=== PATIENT | female | born 1935 | race Caucasian/White ===

== ENCOUNTER 2020-04-03 17:28 | Outpatient (CLI) | payer MEDICARE, SELFPAY ==
[2020-04-03 17:50] LABS: Add Urine Microscopic? YES; Appearance Urine Clear (Clear); Bacteria Urine Trace /hpf; Bilirubin Urine Negative (Negative); Blood Urine Negative (Negative); Color Urine Yellow (Yellow); Glucose Urine UA Negative (Negative); Ketones Urine Negative (Negative); Leukocyte Esterase Ur 1+ LEU/UL (Negative); Mucus Urine Rare /lpf; Nitrate Urine Negative (Negative); Protein Urine 1+ mg/dL (Negative); RBC Urine 0-2 /hpf (0-2); Squamous Epithelial Cell Urine Rare /hpf (Few); Urobilinogen Urine Negative mg/dL (<2.0); WBC Urine 16-20 /hpf
== END 2020-04-03 17:29 | disposition home or self-care (01) ==
PROVIDERS: PCP Family Medicine; Visit Provider Family Medicine
DX: N39.0 Urinary tract infection, site not specified (principal)
CPT/HCPCS: 81001; 87086; 87088

== ENCOUNTER 2020-06-04 11:39 | Outpatient (NON) | payer MEDICARE, SELFPAY ==
[2020-06-04 14:23] LABS: Influenza Control Positive
[2020-06-04 21:48] LABS: SARS-CoV-2 RNA PCR Negative
== END 2020-06-04 11:40 ==
LOC: ANHCOVIDDT 11:41
PROVIDERS: PCP Family Medicine; Visit Provider Family Medicine
DX: R05 Cough (principal); Z20.828 Contact with and (suspected) exposure to other viral communicable diseases
CPT/HCPCS: 87635; 87804; C9803; U0003

== ENCOUNTER 2020-08-27 14:40 | Outpatient (CLI) | payer MEDICARE, SELFPAY ==
--- NOTE | ~2020-08-27 | XR_ITS ---
XR chest 2V DATE: 08/27/2020 15:54 INDICATION: Dizziness and giddiness. History of COPD. TECHNIQUE: PA and lateral views COMPARISON: 06/14/2017 CT chest FINDINGS: Normal heart size. Aortic arch calcification. No hilar or mediastinal enlargement. No pulmonary infiltrate or consolidation, pleural effusion or pulmonary vascular congestion or pneumo thorax is detected. Diffuse osteopenia. Status post cholecystectomy IMPRESSION: No active cardiopulmonary disease Aortic atherosclerosis Status post cholecystectomy Reviewed, dictated and finalized at location B.
[2020-08-27 15:21] LABS: Basophils Absolute Auto 0.1 K/mm3 (0.0-0.1); Basophils Percent Auto 0.5 % (0.2-1.2); Eosinophils Absolute Auto 0.3 K/mm3 (0-0.3); Eosinophils Percent Auto 2.9 % (0-4.4); Hematocrit 44.7 % (37.0-47.0); Hemoglobin 14.6 g/dL (12.0-15.0); Immature Granulocyte Absolute 0.03 K/mm3 (0.00-0.031); Immature Granulocyte Percent A 0.3 % (0-0.5); Lymphocytes Absolute Auto 3.55 K/mm3 (0.9-3.2); Lymphocytes Percent Auto 30.1 % (18.3-44.2); Mean Corpuscular HGB Conc 32.7 g/dl (32-36); Mean Corpuscular Hemoglobin 30.7 pg (26-34); Mean Corpuscular Volume 94.1 fl (80-100); Mean Platelet Volume 9.5 fl (7.4-10.4); Monocytes Absolute Auto 1.1 K/mm3 (0.1-0.6); Monocytes Percent Auto 8.9 % (2.6-8.5); Neutrophils Absolute Auto 6.8 K/mm3 (1.3-6.7); Neutrophils Percent Auto 57.3 % (45.5-73.1); Platelet Count Result 286 k/mm3 (150-375); Red Blood Count 4.75 M/mm3 (4.2-5.4); Red Cell Distribution Width 11.3 % (11.5-14.5); White Blood Count 11.8 K/mm3 (4.5-10.0)
[2020-08-27 15:30] LABS: Add Urine Microscopic? YES; Appearance Urine Cloudy (Clear); Bacteria Urine Trace /hpf; Bilirubin Urine Negative (Negative); Blood Urine Negative (Negative); Color Urine Yellow (Yellow); Glucose Urine UA Negative (Negative); Ketones Urine Negative (Negative); Leukocyte Esterase Ur 3+ LEU/UL (NEGATIVE); Mucus Urine Rare /lpf; Nitrate Urine Negative (Negative); Protein Urine 1+ mg/dL (Negative); Specific Grav Ur 1.019 (1.001-1.035); Squamous Epithelial Cell Urine Rare /hpf (Few); Urobilinogen Urine Negative mg/dL (<2.0); WBC Urine 21-30 /hpf (0-3)
[2020-08-27 15:35] LABS: Alanine Aminotransferase 16 U/L (4-35); Albumin Level 4.3 g/dL (3.5-5.1); Alkaline Phosphatase 84 U/L (38-126); Anion Gap 6 mmol/L (8-16); Aspartate Amino Transferase 28 U/L (14-36); Bilirubin,Total 0.3 mg/dL (0.2-1.3); Blood Urea Nitrogen 20 mg/dL (7-17); Calcium 9.2 mg/dL (8.4-10.2); Carbon Dioxide 28 mmol/L (22-30); Chloride 104 mmol/L (98-107); Estimated Glomerular Filt Rate 47; Glucose 112 mg/dL (65-105); Potassium 4.8 mmol/L (3.4-5.0); Sodium 138 mmol/L (137-145)
[2020-08-29 15:52] LABS: Lamotrigine Lamictal 0.9 mcg/mL (4.0-18.0)
== END 2020-08-27 14:41 | disposition home or self-care (01) ==
LOC: ANHLAB 14:55
PROVIDERS: PCP Family Medicine; Visit Provider Nurse Practitioner Family
DX: R42 Dizziness and giddiness (principal); J44.9 Chronic obstructive pulmonary disease, unspecified; R05 Cough; G40.909 Epilepsy, unspecified, not intractable, without status epilepticus; R41.0 Disorientation, unspecified; N39.0 Urinary tract infection, site not specified; Z90.49 Acquired absence of other specified parts of digestive tract; M85.88 Other specified disorders of bone density and structure, other site; I70.0 Atherosclerosis of aorta; Z00.00 Encounter for general adult medical examination without abnormal findings
CPT/HCPCS: 36415; 71046; 80053; 80175; 81001; 84443; 85025; 87086

== ENCOUNTER 2020-11-24 12:13 | Outpatient (CLI) | payer MEDICARE, SELFPAY ==
[2020-11-24 12:54] LABS: Basophils Percent Auto 0.5 % (0.2-1.2); Eosinophils Absolute Auto 0.4 K/mm3 (0-0.3); Eosinophils Percent Auto 4.4 % (0-4.4); Hematocrit 42.3 % (37.0-47.0); Hemoglobin 13.5 g/dL (12.0-15.0); Immature Granulocyte Absolute 0.03 K/mm3 (0.00-0.031); Immature Granulocyte Percent A 0.3 % (0-0.5); Lymphocytes Absolute Auto 3.19 K/mm3 (0.9-3.2); Mean Corpuscular HGB Conc 31.9 g/dl (32-36); Mean Corpuscular Hemoglobin 30.8 pg (26-34); Mean Corpuscular Volume 96.6 fl (80-100); Mean Platelet Volume 9.4 fl (7.4-10.4); Monocytes Absolute Auto 0.9 K/mm3 (0.1-0.6); Monocytes Percent Auto 10.1 % (2.6-8.5); Neutrophils Absolute Auto 4.3 K/mm3 (1.3-6.7); Neutrophils Percent Auto 48.7 % (45.5-73.1); Platelet Count Result 247 k/mm3 (150-375); Red Blood Count 4.38 M/mm3 (4.2-5.4); Red Cell Distribution Width 11.6 % (11.5-14.5); White Blood Count 8.9 K/mm3 (4.5-10.0)
[2020-11-24 13:02] LABS: Add Urine Microscopic? YES; Appearance Urine Clear (Clear); Bilirubin Urine Negative (Negative); Blood Urine Negative (Negative); Color Urine Yellow (Yellow); Glucose Urine UA Negative (Negative); Ketones Urine Negative (Negative); Leukocyte Esterase Ur 3+ LEU/UL (NEGATIVE); Mucus Urine Rare /lpf; Nitrate Urine Negative (Negative); Protein Urine 1+ mg/dL (Negative); Specific Grav Ur 1.024 (1.001-1.035); Squamous Epithelial Cell Urine Rare /hpf (Few); Urobilinogen Urine Negative mg/dL (<2.0); WBC Urine 21-30 /hpf (0-3)
[2020-11-24 13:04] LABS: Alanine Aminotransferase 11 U/L (4-35); Albumin Level 4.3 g/dL (3.5-5.1); Alkaline Phosphatase 72 U/L (38-126); Anion Gap 7 mmol/L (8-16); Aspartate Amino Transferase 28 U/L (14-36); Bilirubin,Total 0.3 mg/dL (0.2-1.3); Blood Urea Nitrogen 21 mg/dL (7-17); Calcium 9.1 mg/dL (8.4-10.2); Carbon Dioxide 29 mmol/L (22-30); Chloride 105 mmol/L (98-107); Estimated Glomerular Filt Rate 47; Glucose 88 mg/dL (65-105); Potassium 4.5 mmol/L (3.4-5.0); Sodium 141 mmol/L (137-145)
== END 2020-11-24 12:14 | disposition home or self-care (01) ==
PROVIDERS: PCP Family Medicine; Visit Provider Nurse Practitioner Family
DX: N39.0 Urinary tract infection, site not specified (principal); R42 Dizziness and giddiness; R53.1 Weakness; R41.0 Disorientation, unspecified
CPT/HCPCS: 36415; 80053; 81001; 85025; 87086

== ENCOUNTER 2020-11-29 09:31 | Observation (INO) | payer MEDICARE, SELFPAY ==
[2020-11-29] VITALS (17 sets, daily range): BP systolic 130–151; BP diastolic 63–96; PULSE 77–87; RESP 12–22; TEMP 36.4–36.9; O2SAT 85–97; BMI 26.8
--- NOTE | ~2020-11-29 | MR_ITS ---
EXAMINATION: MR brain/brain stem wo/w con DATE: 11/30/2020 10:07 INDICATION: Headache and dizziness. TECHNIQUE: Magnetic resonance imaging (MRI) of the brain and brainstem was performed without and with 15 mm MultiHance intravenous contrast. Sequences included sagittal and axial T1-weighted FSE, axial diffusion-weighted FS EPI, axial T2*-weighted GRE, axial T2-weighted FLAIR Propeller, and axial T2-we ighted Propeller. Postcontrast sequences included axial and coronal T1-weighted FSE. Apparent diffusi on coefficient (ADC) maps were created. COMPARISON: Brain MRI 10/30/2016, head CT 11/29/2020 FINDINGS: There are scattered areas of nonspecific increased T2-weighted signal intensity in the cere bral white matter, which is within normal limits for the patient's age. There is no intracranial hemo rrhage, acute infarction, or abnormal intracranial mass lesion. The ventricles are normal in size. Th e paranasal sinuses are clear. There are likely changes of ocular lens replacement surgeries. The mas toid air cells are normal. IMPRESSION: 1. Normal aging brain. Reviewed, dictated and finalized at location A. IMPRESSION: 1. Normal aging brain.
--- NOTE | ~2020-11-29 | MR_ITS ---
EXAMINATION: MR cervical spine wo con DATE: 11/30/2020 10:06 INDICATION: Neck pain. TECHNIQUE: Magnetic resonance imaging (MRI) of the cervical spine was performed without intravenous c ontrast. Sequences included sagittal T2-weighted FSE, sagittal STIR FSE, sagittal T1-weighted FSE, ax ial MERGE, and axial T2-weighted FSE. COMPARISON: CT cervical spine 06/15/2018 FINDINGS: There is 6 degrees levocurvature of cervical spine. There is kyphosis of cervical spine. Th ere is 2 mm anterolisthesis of C3 on C4 and 2 mm retrolisthesis of C5 on C6 and C6 on C7. Vertebral b yamil heights are normal. There is severely decreased disc height at C5-C6 and C6-C7. The spinal cord s ignal intensity is normal. The following disc levels are specifically discussed: C2-C3: There is a central protrusion. There is mild left uncovertebral joint osteoarthritis. There is mild right and severe left facet joint osteoarthritis. There is mild left neural foraminal stenosis. There is mild central canal stenosis. C3-C4: The disc is bulging. There is mild bilateral uncovertebral joint osteoarthritis. There is jeff re bilateral facet joint osteoarthritis. There is mild bilateral neural foraminal stenosis. There is mild central canal stenosis with ventral indentation of the spinal cord. C4-C5: The disc is bulging. There is mild bilateral uncovertebral joint osteoarthritis. There is mild right and severe left facet joint osteoarthritis. There is mild left neural foraminal stenosis. Ther e is mild central canal stenosis with ventral indentation of spinal cord. C5-C6: The disc is bulging. There is severe bilateral uncovertebral joint osteoarthritis. There is mi ld bilateral facet joint osteoarthritis. There is mild bilateral neural foraminal stenosis. There is mild central canal stenosis with ventral indentation of the spinal cord. C6-C7: The disc is bulging. There is severe bilateral uncovertebral joint osteoarthritis. There is mi ld right and moderate left facet joint osteoarthritis. There is mild bilateral neural foraminal steno sis. There is mild central canal stenosis. C7-T1: The disc does not extend beyond the endplate margin. There is no uncovertebral joint osteoarth ritis. There is severe bilateral facet joint osteoarthritis. There is mild bilateral neural foraminal stenosis. There is no central canal stenosis. IMPRESSION: 1. Severe cervical spondylosis, stable from 06/15/2018. Reviewed, dictated and finalized at location A.
--- NOTE | ~2020-11-29 | CT_ITS ---
EXAMINATION: CT abdomen pelvis wo con DATE: 11/30/2020 14:35 INDICATION: Weakness and decreased appetite TECHNIQUE: Computed tomography (CT) of the abdomen and pelvis was performed without intravenous contr ast. The dose-length product (DLP) was 667.34 mGy-cm. Automated exposure control and iterative recons truction technique were employed. COMPARISON: 02/27/2009 FINDINGS: Minimal dependent atelectasis is present in the lung bases. The heart size is normal. Calci fied atherosclerosis is noted. The gallbladder is surgically absent. The liver, spleen, pancreas, and adrenal glands are normal. The kidneys are unremarkable. Contrast from recent CT scan partially opac ifies the urinary tract. There is calcified atherosclerosis of the aorta and many of the other arteri es. No pathologically enlarged abdominal or pelvic lymph nodes are identified. There is no free intra peritoneal gas or evidence of bowel obstruction. Calcified uterine fibroids are noted. Colonic divert iculosis is present without evidence of diverticulitis. There is moderate lumbar spondylosis. IMPRESSION: 1. No CT correlate for the patient's symptoms. Reviewed, dictated and finalized at location B.
--- NOTE | ~2020-11-29 | US_ITS ---
EXAMINATION: US venous doppler [facility] DATE: 11/30/2020 10:35 INDICATION: Lower limb pain and swelling TECHNIQUE: Grayscale ultrasound images without and with compression and Doppler ultrasound images of the bilateral lower extremity veins were obtained. COMPARISON: None. FINDINGS: The visualized portions of right common femoral vein, profunda (deep) femoral vein, femoral vein, pop liteal vein, posterior tibial veins, peroneal veins, gastrocnemius vein and greater saphenous vein ou tflow are patent. The visualized portions of left common femoral vein, profunda femoral vein, femoral vein, popliteal v ein, posterior tibial veins, peroneal veins, gastrocnemius vein and greater saphenous vein outflow ar e patent. IMPRESSION: 1. No deep venous thrombosis in either lower limb. Reviewed, dictated and finalized at location A.
--- NOTE | ~2020-11-29 | XR_ITS ---
XR chest 2V 11/29/2020 10:01 Indication: Weakness and dizziness Procedure: 2 view chest Comparison: 08/27/2020 Findings: Elevated right diaphragm. Bibasilar airspace disease. No significant pleural effusion or pn eumothorax. No edema. There is atherosclerosis. Impression: 1: Bibasilar airspace disease which may represent atelectasis or pneumonia. Reviewed, dictated and finalized at location A. Impression: 1: Bibasilar airspace disease which may represent atelectasis or pneumonia.
--- NOTE | ~2020-11-29 | CT_ITS ---
EXAMINATION: CTA chest PE protocol DATE: 11/29/2020 12:29 CDT INDICATION: Decreasing mental status. Increasing hypoxia. TECHNIQUE: Computed tomographic angiography (CTA) of the chest was performed with 100 mL Omnipaque-35 0 intravenous contrast. The dose-length product was 560.02 mGy-cm. Maximum intensity projection 3D-re constructions of the aorta and other arteries were constructed by the technologist on a separate work station. Automated exposure control and iterative reconstruction technique were employed. COMPARISON: 06/14/2017 FINDINGS: Enlarged pulmonary arteries, consistent with pulmonary hypertension. Study is technically a dequate without evidence for pulmonary embolism. There is thoracic lymphadenopathy. No significant pl eural or pericardial effusion. Small hiatal hernia. Cardiomegaly. There is dependent atelectasis. The re is mild consolidation in the lower lobes which is most likely atelectasis, although superimposed p neumonia not excluded. No endobronchial lesions. No pneumothorax.. IMPRESSION: 1. No evidence for pulmonary embolism. 2: Pulmonary hypertension. 3: Dependent atelectasis. Cannot exclude superimposed pneumonia. Reviewed, dictated and finalized at location A.
--- NOTE | ~2020-11-29 | CT_ITS ---
EXAMINATION: CT brain wo con DATE: 11/29/2020 12:20 INDICATION: Decreasing mental status TECHNIQUE: Computed tomography (CT) of the head was performed without intravenous contrast. The dose- length product was 681.00 mGy-cm. Automated exposure control and iterative reconstruction technique w ere employed. COMPARISON: CT dated 06/15/2018 FINDINGS: Brain parenchymal volume is normal for age. There are scattered mild periventricular and grider bcortical white matter changes, most likely related to small vessel ischemic disease (microangiopathy ). No acute intracranial infarction, hemorrhage, mass or mass effect. No ventriculomegaly or midline shift. Basilar cisterns are patent. Paranasal sinuses and mastoids are pneumatized. Orbits are symmet hilton. IMPRESSION: 1. No acute intracranial abnormality. Reviewed, dictated and finalized at location A.
--- NOTE | ~2020-11-29 | US_ITS ---
EXAMINATION: US carotid duplex BI DATE: 11/30/2020 10:34 INDICATION: Dizziness. TECHNIQUE: Grayscale, color Doppler, and pulsed Doppler images of the cervical carotid arteries were obtained. The degree of vessel stenosis is placed in one of the following categories: normal, <50%, 5 0-69%, >=70% but less than near-occlusion, near-occlusion, or total occlusion. Note that percent sten osis relative to normal distal artery lumen diameter is indirectly measured from velocity measurement s as described by Trey, et al. Radiology 2003; 229:[id number]. COMPARISON: None. FINDINGS: RIGHT: The right common carotid artery (CCA) peak systolic velocity (PSV) is 74 cm/s. The right internal car otid artery (ICA) PSV is 36 cm/s. The right ICA end-diastolic velocity (EDV) is 9 cm/s. The right ICA /CCA PSV ratio is 0.5. Grayscale and color Doppler images yield an estimate of <50% diameter reductio n from plaque in the ICA. There is antegrade flow in the right vertebral artery. LEFT: The left CCA PSV is 87 cm/s. The left ICA PSV is 66 cm/s. The left ICA EDV is 24 cm/s. The left ICA/C CA PSV ratio is 0.8. Grayscale and color Doppler images yield an estimate of <50% diameter reduction from plaque in the ICA. There is antegrade flow in the left vertebral artery. IMPRESSION: 1. <50% stenosis in the right internal carotid artery. 2. <50% stenosis in the left internal carotid artery. Reviewed, dictated and finalized at location A.
--- NOTE | 2020-11-29 09:36 | ECG_ITS ---
Measurements Intervals [place] Rate: 83 P: 46 VT: 159 QRS: -14 QRSD: 78 T: 59 QT: 358 QTc: 421 Interpretive Statements SINUS RHYTHM CANNOT RULE OUT SEPTAL INFARCT, AGE INDETERMINATE BASELINE WANDER- I, III ABNORMAL ECG Electronically Signed On 11-29-2020 14:53:13 CDT by Quique Baez D.O.
[2020-11-29 10:27] LABS: Basophils Absolute Auto 0.1 K/mm3 (0.0-0.1); Basophils Percent Auto 0.6 % (0.2-1.2); Eosinophils Absolute Auto 0.3 K/mm3 (0-0.3); Eosinophils Percent Auto 3.8 % (0-4.4); Hematocrit 42.6 % (37.0-47.0); Hemoglobin 13.6 g/dL (12.0-15.0); Immature Granulocyte Absolute 0.02 K/mm3 (0.00-0.031); Immature Granulocyte Percent A 0.2 % (0-0.5); Lymphocytes Absolute Auto 2.52 K/mm3 (0.9-3.2); Lymphocytes Percent Auto 27.9 % (18.3-44.2); Mean Corpuscular HGB Conc 31.9 g/dl (32-36); Mean Corpuscular Hemoglobin 29.9 pg (26-34); Mean Corpuscular Volume 93.6 fl (80-100); Mean Platelet Volume 9.8 fl (7.4-10.4); Monocytes Percent Auto 11.2 % (2.6-8.5); Neutrophils Absolute Auto 5.1 K/mm3 (1.3-6.7); Neutrophils Percent Auto 56.3 % (45.5-73.1); Platelet Count Result 276 k/mm3 (150-375); Red Blood Count 4.55 M/mm3 (4.2-5.4); Red Cell Distribution Width 11.5 % (11.5-14.5)
[2020-11-29 10:38] LABS: Alanine Aminotransferase 17 U/L (4-35); Albumin Level 4.3 g/dL (3.5-5.1); Alkaline Phosphatase 87 U/L (38-126); Anion Gap 11 mmol/L (8-16); Aspartate Amino Transferase 31 U/L (14-36); Bilirubin,Total 0.4 mg/dL (0.2-1.3); Blood Urea Nitrogen 23 mg/dL (7-17); Calcium 9.3 mg/dL (8.4-10.2); Carbon Dioxide 25 mmol/L (22-30); Chloride 104 mmol/L (98-107); Estimated CRCL calculation 30 ml/min; Estimated Glomerular Filt Rate 47; Glucose 96 mg/dL (65-105); Potassium 4.4 mmol/L (3.4-5.0); Sodium 140 mmol/L (137-145)
[2020-11-29 10:44] LABS: Add Urine Microscopic? NO; Appearance Urine Clear (Clear); Bilirubin Urine Negative (Negative); Blood Urine Negative (Negative); Color Urine Yellow (Yellow); Glucose Urine UA Negative (Negative); Ketones Urine Negative (Negative); Leukocyte Esterase Ur Negative LEU/UL (Negative); Nitrate Urine Negative (Negative); Protein Urine Negative (Negative); Specific Grav Ur 1.013 (1.001-1.035); Urobilinogen Urine Negative mg/dL (<2.0)
[2020-11-29 10:54] LABS: Alveolar/Arterial O2 Gradient 118.9 mmHg; Base Excess ABG -1.5 mEq/l (+/-2.0); Carboxyhemoglobin 0.5 % THb (0-2.0); Fractional Inspired Oxygen 32 %; HCO3 ABG 22.6 mEq/l (22.0-26.0); Methemoglobin ABG 0.3 %THb (0-1.5); Oxygen Saturation ABG 93.6 % (95.0-100.0); Oxyhemoglobin 91.2 % THb (90.0-100.0); PCO2 ABG 36.4 mmHg (35.0-45.0); PO2 ABG 66.7 mmHg (80.0-100.0); PO2 FiO2 Ratio Arterial Blood 2.08 %; pH ABG 7.411 (7.350-7.450)
[2020-11-29 10:55] LABS: Device NASAL CANNULA; Modified Allen's Test Pass; Site Drawn RIGHT RADIAL
[2020-11-29] MEDS: ONDANSETRON INJ 4 MG/2 ML VIAL IV PUSH (11:19)
[2020-11-29] MEDS: SODIUM CHLORIDE 0.9% IV 1,000 ML 999 ML IV CONT (11:28)
--- NOTE | 2020-11-29 12:05 | ED.WEAKNESS ---
HPI - Weakness General Chief complaint: Weakness Stated complaint: weak x 1 week Time Seen by Provider: 11/29/20 10:24 Source: family and RN notes reviewed Mode of arrival: EMS Limitations: dementia History of Present Illness HPI Narrative: This is an 85 year old female with history of seizure , chronic oxygen dependence, dementia who presents with her daughter for evaluation of weakness. Her daughter states patient was seen by her primary care provider on monday for routine check up. She states she was doing well on that visit and she was able walk into clinic. She reports over the past 4 days patient seem so be getting progressively weak. She states patient is frequently sleeping and she complains of intermittent headache. She states she is having difficulty getting her out of bed and to eat. She denies patient having fever, vomiting, diarrhea, cough or worsening shortness of breath. Related Data Home Medications Medication Instructions Recorded Confirmed aspirin 81 mg tablet,delayed 81 mg PO DAILY 05/09/19 11/24/20 release fexofenadine 60 mg tablet 60 mg PO Q12H 05/09/19 11/24/20 Allergies Allergy/AdvReac Type Severity Reaction Status Date / Time No Known Allergies Allergy Unverified 11/24/20 11:10 Review of Systems Review of Systems: ROS unobtainable: Yes unobtainable due to mental status PMFSH Past Medical History Medical History (Updated 11/29/20 @ 13:14 by Gabby Mejia MD) Bilateral impacted cerumen COPD (chronic obstructive pulmonary disease) Dementia, unspecified, without behavioral disturbance Dizziness Surgical History Surgical History (Updated 05/10/19 @ 11:25 by Mazin Mcdonnell MD) Status post arthroscopic knee surgery Status post rotator cuff repair Family History Family History Father Family history of Alzheimer's disease Family history of diabetes mellitus in first degree relative Sibling Family history of Alzheimer's disease Family history of diabetes mellitus in first degree relative Family history of malignant neoplasm of ovary Mother Family history of malignant neoplasm of breast in first degree relative Social History Social History (Updated 11/24/20 @ 11:09 by Gris Carballo) Smoking packs per day: 2 Smoking cigarettes per day: 40.0 Years smoked: 25 Smoking pack-years: 50.00 Smoking status: Former smoker Alcohol intake: never Substance use: never Substance use type: does not use Gender identity (if verbalized by the patient): Female Spiritual care concerns: No Exam Const: General: no acute distress and alert Other: oriented to person and place HENMT: Ears: TM's normal bilaterally Eyes: Pupils: Equal, round and reactive pupils present EOM: EOMs intact bilaterally Resp: Effort & Inspection: normal respiratory effort and no retractions Auscultation: clear to auscultation bilaterally Cardio: Rate: regular rate Rhythm: regular rhythm Heart sounds: no murmurs GI: GI Palp: Yes Soft to palpation, No Tenderness to palpation present (GI) and No Guarding due to palpation present (GI) Auscultation: normal bowel sounds Skin: General skin exam: normal color Rashes: no rashes Neuro: General: patient oriented x3, moves all extremities, no focal motor deficits and CN's II-XI intact bilaterally Cranial nerves: Yes Nystagmus not present Speech: normal speech Psych: Mental Status: mental status grossly normal Affect: normal affect Course Reevaluation(s) Reevaluation #1: Nursing staff attempted to get patient out of bed but she was complaining of nausea and dizzines. SHe told nursing staff she feels better with eye closed. THis is likely cause of her not getting out of bed. I have discussed with patient and daughter plan to admit . She will be given meds for vertigo. Date: 11/29/20 Time: 13:11 Vital Signs Vital signs: Vital Signs Temperature 98.5 F 11/29/20 09
--- NOTE | 2020-11-29 13:25 | PC.NURSE ---
Attempted to get pt up to ambulate, when sitting up-pt became very dizzy, leaning to the right and not able to proceed out of the bed. Dr. Mejia notified.
[2020-11-29] MEDS: MECLIZINE HCL 25 MG TABLET PO (14:03)
[2020-11-29] MEDS: ASPIRIN 81 MG CHEWABLE TABLET 324 MG PO (14:04)
--- NOTE | 2020-11-29 14:14 | ADMGEN ---
This patient, Danette Van, was admitted to Medical Room 344-01. Patient/family oriented to hospital policies and general routines including ID bracelet, bed and alarms, visiting hours, pain management, procedures, bathroom and other care routines, personal items, smoking policy, room service/diet, and visiting hours. Information on how to activate the Rapid Response Team has been discussed. Patient/Family are encouraged to report perceived risks to care and to ask questions if they do not understand what they are told or what they should do.
[2020-11-29] MEDS: SODIUM CHLORIDE 0.9% IV 1,000 ML 125 ML IV CONT (14:27)
--- NOTE | 2020-11-29 16:30 | PM.IMHP ---
H&P: HPI History of Present Illness Date/Time: 11/29/20 16:30 Chief Complaint: Weakness. Narrative: This is an 85-year-old female with history of seizures, dementia, and chronic respiratory failure on home oxygen who presented to the emergency department earlier today via EMS from home for evaluation of weakness. She is not able to provide a good history and thus a majority of the following is obtained via a review her electronic medical records as well as discussions with her daughter. The patient lives at home with her daughter Jesica and she is typically up and ambulating on her own though over the last 6 weeks or so she has been fatigued and is sleeping much more than usual. In fact she was seen by her primary care provider on 11/24/2020 for evaluation of fatigue and increase in hallucinations. during that visit the patient complained of dizziness which was documented as a chronic an ongoing issue for her. A urinalysis was obtained at that time and she was started on nitrofurantoin for possible UTI however urine culture came back with no growth. Since that time she has not really been able to ambulate or even get out of bed and she has been complaining of right-sided neck pain for which she has been using a heating pad. Unfortunately she is not able to provide me much information or verbalize what she is feeling; she does not offer information however will say yes or no when asked questions although I am not certain her answers are reliable. Her labs and imaging were essentially unremarkable but she is being admitted for further evaluation. I sat the patient up in bed and she immediately closed her eyes and reported feeling dizzy. She also indicated that she was having pains and spasms in the right side of her posterior neck. Family members deny recent cold and flu symptoms. No fever. No falls or injury. She has not complained of focal weakness or paresthesias. Family members have not noticed facial droop or slurred speech. No noticeable issues with dysphagia or coughing with eating or drinking. She is not on any sedatives at home. The only recent change she had medications was increase in dose of her lamotrigine in August 2020. Review of Systems Review of Systems: Narrative: 12 systems were reviewed but are limited given the patient's dementia. I am not sure her answers are accurate as she does contradict herself. At time she seems to be agreeing with what ever her daughter is saying as well. Aside from the right-sided neck pain she has no other specific complaints. She does deny chest pain, shortness of breath, nausea, vomiting, and dysuria. She has had intermittent swelling of the lower extremities which seemed to improve overnight. Except as documented, all other systems were reviewed and are negative. [facility] Past Medical History Medical History (Updated 11/29/20 @ 20:09 by Simran Spivey PA-C) Chronic kidney disease, stage 3a Baseline creatinine is 1.10. Chronic obstructive pulmonary disease Refuses inhalers. Chronic respiratory failure with hypoxia, on home oxygen therapy Dementia Depression with anxiety Gastroesophageal reflux disease Irritable bowel syndrome Nephrolithiasis Obstructive sleep apnea Noncompliant with CPAP. Pulmonary nodule Seizure disorder Surgical History Surgical History (Updated 11/29/20 @ 15:28 by Simran Spivey PA-C) History of arthroscopy of right knee History of cholecystectomy History of repair of left rotator cuff History of tonsillectomy Family History Family History Father Family history of Alzheimer's disease Family history of diabetes mellitus in first degree relative Sibling Family history of Alzheimer's disease Family history of diabetes mellitus in first degree relative Family history of malignant neoplasm of ovary Mother Family history of malignant neoplasm of breast in first degree relative Social History Social His
[2020-11-29 17:25] LABS: Free T4 Free Thyroxine Reflex 1.49 ng/dL (0.78-2.19)
[2020-11-29] MEDS: CARBAMIDE PEROXIDE 6.5% OT SOLN 15 ML BTL 5 DROP RIGHT EAR (18:55)
[2020-11-29] MEDS: DICLOFENAC SOD 75 MG TABLET.EC PO (18:56)
[2020-11-29] MEDS: GABAPENTIN 100 MG CAPSULE PO (18:56)
[2020-11-29 19:42] LABS: Total Triiodothyronine (T3) 1.47 NG/ML (0.97-1.69)
[2020-11-30] VITALS (14 sets, daily range): BP systolic 113–137; BP diastolic 59–80; PULSE 72–89; RESP 14–18; TEMP 36.2–36.8; O2SAT 92–96
[2020-11-30 05:50] LABS: Basophils Absolute Auto 0.1 K/mm3 (0.0-0.1); Basophils Percent Auto 0.8 % (0.2-1.2); Eosinophils Absolute Auto 0.3 K/mm3 (0-0.3); Eosinophils Percent Auto 3.2 % (0-4.4); Hematocrit 42.1 % (37.0-47.0); Hemoglobin 13.2 g/dL (12.0-15.0); Immature Granulocyte Absolute 0.03 K/mm3 (0.00-0.031); Immature Granulocyte Percent A 0.4 % (0-0.5); Lymphocytes Absolute Auto 2.49 K/mm3 (0.9-3.2); Lymphocytes Percent Auto 31.4 % (18.3-44.2); Mean Corpuscular HGB Conc 31.4 g/dl (32-36); Mean Corpuscular Hemoglobin 29.9 pg (26-34); Mean Corpuscular Volume 95.2 fl (80-100); Mean Platelet Volume 9.4 fl (7.4-10.4); Monocytes Absolute Auto 0.8 K/mm3 (0.1-0.6); Monocytes Percent Auto 10.6 % (2.6-8.5); Neutrophils Absolute Auto 4.3 K/mm3 (1.3-6.7); Neutrophils Percent Auto 53.6 % (45.5-73.1); Platelet Count Result 260 k/mm3 (150-375); Red Blood Count 4.42 M/mm3 (4.2-5.4); Red Cell Distribution Width 11.6 % (11.5-14.5); White Blood Count 7.9 K/mm3 (4.5-10.0)
[2020-11-30 06:07] LABS: Alanine Aminotransferase 16 U/L (4-35); Alkaline Phosphatase 80 U/L (38-126); Anion Gap 9 mmol/L (8-16); Aspartate Amino Transferase 29 U/L (14-36); Bilirubin,Total 0.5 mg/dL (0.2-1.3); Blood Urea Nitrogen 22 mg/dL (7-17); Calcium 8.9 mg/dL (8.4-10.2); Carbon Dioxide 23 mmol/L (22-30); Chloride 109 mmol/L (98-107); Estimated CRCL calculation 32 ml/min; Estimated Glomerular Filt Rate 47; Glucose 87 mg/dL (65-105); Sodium 141 mmol/L (137-145)
[2020-11-30] MEDS: ASPIRIN 81 MG ENTERIC TABLET PO (08:07)
[2020-11-30] MEDS: PANTOPRAZOLE SOD SESQUIHYDRATE 20 MG TAB PO (08:07)
[2020-11-30] MEDS: DICLOFENAC SOD 75 MG TABLET.EC PO ×2 (08:07→17:00)
[2020-11-30] MEDS: CARBAMIDE PEROXIDE 6.5% OT SOLN 15 ML BTL 5 DROP RIGHT EAR ×2 (08:07→17:00)
[2020-11-30] MEDS: LORATADINE 10 MG TABLET PO (08:07)
[2020-11-30] MEDS: GABAPENTIN 100 MG CAPSULE PO ×2 (08:07→17:00)
[2020-11-30] MEDS: SERTRALINE HCL 25 MG TABLET 75 MG PO (08:08)
--- NOTE | 2020-11-30 11:19 | PM.IMPN ---
Progress Note: A&P Assessment and Plan (1) Generalized weakness: Code(s): R53.1 - Weakness Status: Acute Assessment and Plan: Likely due to dizziness and generalized deconditioning - current workup has been negative for etiology and includes a negative MRI brain, ultrasound carotid, CTA of the chest, C-spine, UA, lower extremity ultrasound, and chest x-ray - patient has had a decreased appetite but does not think she has had any weight loss, will order abdominal CT - patient is very [place], consider [place]? Although she says she lays outside a lot. check cortisol in the morning - await lamotrigine level -check orthostatics, consider POOJA hose when out of bed - continue PT and OT. May need SNF placement - could be natural progression of dementia (2) Dizziness: Code(s): R42 - Dizziness and giddiness Status: Acute Assessment and Plan: Continue meclizine, it is improved today but not resolved - MRI of the brain and ultrasound of the carotids negative -could consider brain CTA (3) Chronic kidney disease, stage 3a: Code(s): N18.31 - Chronic kidney disease, stage 3a Status: Acute Assessment and Plan: Her renal function is stable on review of previous labs and she does not look overtly dehydrated. - She received a L of normal saline in the emergency department - encourage eating and drinking (4) Chronic respiratory failure with hypoxia, on home oxygen therapy: Code(s): J96.11 - Chronic respiratory failure with hypoxia; Z99.81 - Dependence on supplemental oxygen Status: Acute Assessment and Plan: At baseline oxygen requirement of 2 L (5) Chronic obstructive pulmonary disease: Code(s): J44.9 - Chronic obstructive pulmonary disease, unspecified Status: Acute Assessment and Plan: No acute issues. She continues to refuse to use her inhalers at home. (6) Seizure disorder: Code(s): G40.909 - Epilepsy, unspecified, not intractable, without status epilepticus Status: Acute Assessment and Plan: Lamotrigine dose was increased after a recurrent seizure in August 2020. - continue to hold lamotrigine for now, pending levels to ensure she is not in a toxic range given her presenting symptoms. (7) Dementia: Code(s): F03.90 - Unspecified dementia without behavioral disturbance Status: Acute Assessment and Plan: chronic - lives with her daughter (8) Neck pain: Code(s): M54.2 - Cervicalgia Status: Acute Assessment and Plan: No hx of trama, patient states this is improved - continue supportive care Time Spent With Patient Time with patient: 25 - 35 minutes Subjective Date/time seen: 11/30/20 11:19 Interval history: Pt is a 85-year-old female here for weakness and dizziness. Patient was seen today with daughter at bedside. Patient is pleasantly confused but answers all questions with her eyes closed. She denies chest pain, shortness of breath, fevers, chills, nausea, vomiting, abdominal pain, headache, or leg swelling. She states that she has had a decreased appetite. She looks very tanned and the daughter states that she likes to sit and lay outside a lot. Pt says when she opens her eyes she has no dizziness but that when she gets up she feels dizzy and wants to immediately wants to lay back down. Daughter at bedside states this has been going on for awhile. Please see h&p for full details. Review of Systems Review of Systems: All systems reviewed & are unremarkable except as noted in HPI and below Exam Narrative: Exam Narrative: General: Well developed well nourished patient in NAD HEENT: normocephalic Neck: supple, No pain today Neuro: Alert and oriented to herself, location, but no the year, president or whys he is here. cranial nerves 2-12 intact. Equal strength the upper lower extremities 5/5. Able to do [id number]
[2020-12-01] VITALS (11 sets, daily range): BP systolic 127–143; BP diastolic 75–87; PULSE 74–84; RESP 16; TEMP 36.1; O2SAT 90–95
[2020-12-01] MEDS: SERTRALINE HCL 25 MG TABLET 75 MG PO (10:47)
[2020-12-01] MEDS: ASPIRIN 81 MG ENTERIC TABLET PO (10:47)
[2020-12-01] MEDS: LORATADINE 10 MG TABLET PO (10:47)
[2020-12-01] MEDS: GABAPENTIN 100 MG CAPSULE PO ×2 (10:48→17:10)
[2020-12-01] MEDS: CARBAMIDE PEROXIDE 6.5% OT SOLN 15 ML BTL 5 DROP RIGHT EAR ×2 (10:48→17:10)
[2020-12-01] MEDS: DICLOFENAC SOD 75 MG TABLET.EC PO ×2 (10:48→17:10)
[2020-12-01] MEDS: PANTOPRAZOLE SOD SESQUIHYDRATE 20 MG TAB PO (10:48)
--- NOTE | 2020-12-01 12:07 | PM.IMPN ---
Progress Note: A&P Assessment and Plan (1) Generalized weakness: Code(s): R53.1 - Weakness Status: Acute Assessment and Plan: Elderly patient with dementia presents with several weeks history of dizziness and generalized weakness, worse in last 1 week. Current workup has been negative for etiology and includes a negative MRI brain, ultrasound carotid, CTA of the chest, C-spine, UA, lower extremity ultrasound, CT abdomen, and chest x-ray. Cortisol level within normal limits. Await lamotrigine level. Check orthostatics, consider POOJA hose when out of bed May be related to progression of dementia as family reports increased visual hallucinations also. Discussion with family, they are aware of workup and findings above. Continue PT/OT. Pt lives with daughter; recommend rehab for dc planning. (2) Dizziness: Code(s): R42 - Dizziness and giddiness Status: Acute Assessment and Plan: Still dizzy today. She had not gotten any of the meclizine yet; will switch it to scheduled instead of PRN and monitor. MRI brain and US carotids are normal. BP normal; monitor orthostatic vitals. (3) Chronic kidney disease, stage 3a: Code(s): N18.31 - Chronic kidney disease, stage 3a Status: Acute Assessment and Plan: Her renal function is stable on review of previous labs. Received IV fluids in the ED. Encourage oral intake. (4) Chronic respiratory failure with hypoxia, on home oxygen therapy: Code(s): J96.11 - Chronic respiratory failure with hypoxia; Z99.81 - Dependence on supplemental oxygen Status: Acute Assessment and Plan: No respiratory distress. At baseline oxygen requirement of 3 L (5) Chronic obstructive pulmonary disease: Code(s): J44.9 - Chronic obstructive pulmonary disease, unspecified Status: Acute Assessment and Plan: No acute issues. She does not use her inhalers at home. Albuterol PRN. (6) Seizure disorder: Code(s): G40.909 - Epilepsy, unspecified, not intractable, without status epilepticus Status: Acute Assessment and Plan: Lamotrigine dose was increased after a recurrent seizure in August 2020 (from 100mg daily to 200mg daily). Still awaiting lamotrigine level drawn on arrival to ensure she is not in a toxic range given her presenting symptoms. No results yet as this is a send out lab. To avoid a seizure will resume her old, lower dose of lamotrigine while awaiting the level. Initiate seizure precautions. (7) Dementia: Code(s): F03.90 - Unspecified dementia without behavioral disturbance Status: Acute Assessment and Plan: Chronic, seems to be progressing with worsening over the last weeks. Lives with daughter. Recommend a rehab stay given her ambulatory dysfunction at present. (8) Neck pain: Code(s): M54.2 - Cervicalgia Status: Acute Assessment and Plan: No hx of trama, patient states this is improved. C spine CT with severe cervical spondylosis, likely the etiology of her pain but does not necessarily explain sx of dizziness, weakness. Continue supportive care. Subjective Date/time seen: 12/01/20 1145 Interval history: Ms. Van is an 85yo F with dementia admitted for weakness and dizziness. She is seen in follow up this morning with her daughter, Eulalia, at the bedside. Patient just worked with therapy and became dizzy after walking a few steps, very fatigued, vomited. She is back to bed now and tells me she is not dizzy. She feels dizzy when she gets up and wants to lay back down. Family notes this has been going on for weeks but was gettin
--- NOTE | 2020-12-01 13:20 | PCPTNOTE ---
Attempted to see pt for PT session. Pt supine in bed and declines therapy stating I don't feel up to it multiple times. Pt was educated on benefits of therapy and importance of participation but continues to refuse participation this afternoon. ANANT reports pt did vomit during their session and the daughter states she does feel it is best for the pt to participate.
[2020-12-01] MEDS: lamoTRIgine 100 MG TABLET PO (13:57)
[2020-12-01] MEDS: MECLIZINE HCL 12.5 MG TABLET PO ×3 (13:57→21:17)
[2020-12-02] VITALS (7 sets, daily range): BP systolic 118–125; BP diastolic 58–65; PULSE 67–83; RESP 14–18; TEMP 36–36.3; O2SAT 91–93
[2020-12-02 02:32] LABS: Lamotrigine Lamictal 1.9 mcg/mL (4.0-18.0)
[2020-12-02 06:05] LABS: Hematocrit 40.7 % (37.0-47.0); Hemoglobin 13.3 g/dL (12.0-15.0)
[2020-12-02 06:17] LABS: Anion Gap 8 mmol/L (8-16); Blood Urea Nitrogen 21 mg/dL (7-17); Calcium 9.1 mg/dL (8.4-10.2); Carbon Dioxide 26 mmol/L (22-30); Chloride 106 mmol/L (98-107); Estimated CRCL calculation 35 ml/min; Estimated Glomerular Filt Rate 53; Glucose 99 mg/dL (65-105); Potassium 3.8 mmol/L (3.4-5.0); Sodium 140 mmol/L (137-145)
[2020-12-02 07:18] LABS: Folic Acid 11.9 ng/mL (2.76->20)
[2020-12-02 08:11] LABS: Vitamin D 25 Hydroxy 50.1 ng/mL
[2020-12-02] MEDS: CARBAMIDE PEROXIDE 6.5% OT SOLN 15 ML BTL 5 DROP RIGHT EAR (10:03)
[2020-12-02] MEDS: DICLOFENAC SOD 75 MG TABLET.EC PO (10:03)
[2020-12-02] MEDS: ASPIRIN 81 MG ENTERIC TABLET PO (10:03)
[2020-12-02] MEDS: MECLIZINE HCL 12.5 MG TABLET PO ×2 (10:04→14:00)
[2020-12-02] MEDS: LORATADINE 10 MG TABLET PO (10:04)
[2020-12-02] MEDS: GABAPENTIN 100 MG CAPSULE PO (10:04)
[2020-12-02] MEDS: lamoTRIgine 100 MG TABLET 200 MG PO (10:04)
[2020-12-02] MEDS: SERTRALINE HCL 25 MG TABLET 75 MG PO (10:05)
[2020-12-02] MEDS: PANTOPRAZOLE SOD SESQUIHYDRATE 20 MG TAB PO (10:05)
--- NOTE | 2020-12-02 11:52 | PM.DS ---
DS: Admitting Diagnosis Admitting Diagnosis Admitting Diagnosis: Dizziness, weakness DS: Discharge Diagnosis Discharge Diagnosis (1) Generalized weakness: Code(s): R53.1 - Weakness Status: Acute Assessment and Plan: Date of Admission 11/29/20 Date of Discharge 12/02/20 Ms. Van is a pleasant 85yo F with dementia who presents with several weeks history of dizziness and generalized weakness, worse in last 1 week. Current workup has been generally unrevealing and includes a negative MRI brain, ultrasound carotid, CTA of the chest, C-spine, UA, lower extremity ultrasound, CT abdomen, and chest x-ray. Cortisol level within normal limits. B12, Folate, iron normal. She has been vaccinated against COVID and has no respiratory symptoms or fever. Initially it was considered her symptoms might have been related to increased lamictal dose August 2020 after a seizure and her lamictal was held until the level was available. Lamictal level returned low and her dose of lamictal was resumed. No recent seizure activity. May be related to progression of dementia as family reports increased visual hallucinations also. Discussion with family, they are aware of workup and findings above. Continue PT/OT. Pt lives with daughter; She is a good candidate to continue PT/OT at SNF. She is hemodynamically stable for discharge to [facility] today. Follow up with PCP. (2) Dizziness: Code(s): R42 - Dizziness and giddiness Status: Acute Assessment and Plan: Improved with meclizine. MRI brain and US carotids are normal. BP stable. (3) Chronic kidney disease, stage 3a: Code(s): N18.31 - Chronic kidney disease, stage 3a Status: Chronic Assessment and Plan: Her renal function is stable on review of previous labs. Cr 1.0 day of discharge with CrCl 35. Received IV fluids in the ED. Encourage oral intake. (4) Chronic respiratory failure with hypoxia, on home oxygen therapy: Code(s): J96.11 - Chronic respiratory failure with hypoxia; Z99.81 - Dependence on supplemental oxygen Status: Chronic Assessment and Plan: No respiratory distress. At baseline oxygen requirement of 3 L. (5) Chronic obstructive pulmonary disease: Code(s): J44.9 - Chronic obstructive pulmonary disease, unspecified Status: Chronic Assessment and Plan: No acute issues such as cough or shortness of breath. She does not use her inhalers at home. Albuterol PRN available. (6) Seizure disorder: Code(s): G40.909 - Epilepsy, unspecified, not intractable, without status epilepticus Status: Chronic Assessment and Plan: Lamotrigine dose was increased after a recurrent seizure in August 2020 (from 100mg daily to 200mg daily). Lamotrigine level came back low and her lamotrigine was resumed (held on arrival while awaiting the send-out test given the initial concern for too much lamictal possibly causing her symptoms.) (7) Dementia: Code(s): F03.90 - Unspecified dementia without behavioral disturbance Status: Chronic Assessment and Plan: Chronic, seems to be progressing with worsening over the last weeks. Lives with daughter. Recommend a rehab stay given her ambulatory dysfunction at present. (8) Neck pain: Code(s): M54.2 - Cervicalgia Status: Acute Assessment and Plan: No hx of trama, patient states this is improved. C spine CT with severe cervical spondylosis, likely the etiology of her pain but does not necessarily explain sx of dizziness, weakness. Continue supportive care. DS: Summary Hospital [facility]
[2020-12-02 12:32] LABS: Iron 90 ug/dL (37-170)
[2020-12-02 12:44] LABS: Percent Iron Saturation 39 % (20-50)
--- NOTE | 2020-12-02 14:09 | PCPTNOTE ---
Attempted to see patient for PT, however patient refused. Patient report she does not like therapy. Explained the importance of therapy to patient and activities in therapy, patient reported she doesn't want to do all that.
== END 2020-12-02 16:15 ==
LOC: ANHED 13:14 → ANH3MED 13:51
PROVIDERS: Physician Assistant; Admitting Provider Family Medicine; Emergency Provider General Practice; PCP Family Medicine; Visit Provider Physician Assistant
DX: R42 Dizziness and giddiness (principal); R53.1 Weakness; G40.909 Epilepsy, unspecified, not intractable, without status epilepticus; F03.90 Unspecified dementia, unspecified severity, without behavioral disturbance, psychotic disturbance, mood disturbance, and anxiety; G47.33 Obstructive sleep apnea (adult) (pediatric); J44.9 Chronic obstructive pulmonary disease, unspecified; J96.11 Chronic respiratory failure with hypoxia; M47.812 Spondylosis without myelopathy or radiculopathy, cervical region; N18.31 Chronic kidney disease, stage 3a; Z99.81 Dependence on supplemental oxygen; Z87.891 Personal history of nicotine dependence; Z79.899 Other long term (current) drug therapy
CPT/HCPCS: 36415; 36600; 70450; 70553; 71046; 71275; 72141; 74176; 80048; 80053; 80175; 81003; 82306; 82375; 82533; 82607; 82746; 82805; 83050; 83540; 83550; 83735; 84100; 84439; 84443; 84480; 85014; 85018; 85025; 93005; 93880; 93970; 96361; 96374; 96375; 97161; 97165; 97530; 97535; 99285; A9270; A9577; G0378; J0131; J2405; J7030; Q9967

== ENCOUNTER 2021-06-13 15:45 | Observation (INO) | payer MEDICARE, SELFPAY ==
[2021-06-13] VITALS (12 sets, daily range): BP systolic 122; BP diastolic 92; PULSE 81–84; RESP 13–20; TEMP 36.6; O2SAT 95–98
--- NOTE | ~2021-06-13 | CT_ITS ---
EXAMINATION: CT brain wo con INDICATION: Head injury COMPARISON: 11/29/2020 TECHNIQUE: Standard unenhanced head CT. The dose-length product (DLP) was 681.00 mGy-cm. The mA was a djusted according to patient size. Iterative reconstruction technique was employed. FINDINGS: There is no acute intraparenchymal hemorrhage. No evidence of mass lesion. No evidence of a cute infarction. There is moderate periventricular and subcortical hypodensity probably related to sm all vessel ischemic disease. There is moderate prominence of the sulci and ventricles related to cere bral atrophy. Intracranial calcified cerebral atherosclerosis is noted. There are no extra-axial evangelina ections. There is no mass effect or midline shift. Changes in the globes are likely from ocular lens surgery. The visualized sinuses and mastoid air cells are well aerated. IMPRESSION: 1. No acute intracranial abnormality. 2. Age related findings. Reviewed, dictated and finalized at location F. CLINICAL DOCUMENTATION
--- NOTE | ~2021-06-13 | XR_ITS ---
EXAMINATION: XR wrist LT min 3V DATE: 06/13/2021 16:37 INDICATION: Left wrist pain TECHNIQUE: Posteroanterior, ulnar deviation, oblique, and lateral views of the left wrist were obtain ed. COMPARISON: None available FINDINGS: There is no fracture, dislocation, or subluxation. There is moderate osteoarthritis through out the wrist. The soft tissues are unremarkable. IMPRESSION: 1. No acute osseous abnormality. Reviewed, dictated and finalized at location F. SEAFOOD ASSOCIATE
--- NOTE | ~2021-06-13 | XR_ITS ---
EXAMINATION: XR ribs LT 2V INDICATION: Left chest pain TECHNIQUE: Four views of the left ribs were obtained. COMPARISON: None. FINDINGS: The bones are osteopenic which limits sensitivity for fracture. There our age-indeterminate fractures of the left seventh and eighth ribs laterally. The visualized portions of the left hemitho rax are unremarkable. IMPRESSION: 1. Age indeterminate fractures of the left seventh and eighth ribs. Reviewed, dictated and finalized at location F. WIRE CHIEF
--- NOTE | ~2021-06-13 | XR_ITS ---
EXAMINATION: XR hip BI 2V w AP pelvis DATE: 06/13/2021 16:37 INDICATION: Bilateral hip pain after fall TECHNIQUE: AP view the pelvis and two views of each hip were obtained. COMPARISON: None. FINDINGS: Bone alignment is normal. There is no fracture. There is mild osteoarthritis of the hips. C alcified uterine fibroids are noted. There is severe lower lumbar spondylosis. IMPRESSION: 1. No acute osseous abnormality. Reviewed, dictated and finalized at location F. LY SALES STAFF
--- NOTE | ~2021-06-13 | CT_ITS ---
EXAMINATION: CT cervical spine wo con DATE: 06/13/2021 17:07 INDICATION: Neck pain TECHNIQUE: Computed tomography (CT) of the cervical spine was performed without intravenous contrast. The dose-length product (DLP) was 242.49 mGy-cm. Automated exposure control and iterative reconstruc tion technique were employed. COMPARISON: 06/15/2018 FINDINGS: There are 3 mm of stable anterolisthesis of C3 on C4 and 2 mm of stable retrolisthesis of C 5 on C6 and C6 on C7. There is no fracture. The vertebral body heights are maintained. There is sever e loss of intervertebral disc space height at C5-6 and C6-7. The odontoid is intact. The prevertebral soft tissues are normal. There is severe multilevel facet and uncovertebral joint osteoarthritis. IMPRESSION: 1. Severe cervical spondylosis without acute findings or significant interval change. Reviewed, dictated and finalized at location F. RER CHEESEMAKING IMPRESSION: 1. Severe cervical spondylosis without acute findings or significant interval c christ.
--- NOTE | ~2021-06-13 | XR_ITS ---
EXAMINATION: XR chest 2V DATE: 06/13/2021 16:36 INDICATION: Transient alteration of awareness TECHNIQUE: Frontal and lateral views of the chest are obtained COMPARISON: 11/29/2020 FINDINGS: There are minimal opacities of the lung bases. There is no pleural effusion or pneumothorax . The cardiomediastinal silhouette is normal. There is moderate thoracic spondylosis. IMPRESSION: 1. Minimal bibasilar airspace opacities, consistent with atelectasis versus pneumonia. Reviewed, dictated and finalized at location F. LACE MACHINE OPERATOR IMPRESSION: 1. Minimal bibasilar airspace opacities, consistent with atelectasis versus pne umonia.
--- NOTE | ~2021-06-13 | CT_ITS ---
EXAMINATION: CT abdomen pelvis wo con DATE: 06/13/2021 19:31 INDICATION: Hip and pelvic pain after fall TECHNIQUE: Computed tomography (CT) of the abdomen and pelvis was performed without intravenous contr ast. The dose-length product (DLP) was 742.23 mGy-cm. Automated exposure control and iterative recons truction technique were employed. COMPARISON: 11/30/2020 FINDINGS: There is moderate dependent atelectasis of the visualized lung bases. There are healing pos terolateral fractures of the left sixth and seventh ribs. The heart size is normal. There is calcifie d coronary artery atherosclerosis. The gallbladder is surgically absent. The liver, spleen, pancreas, and adrenal glands are normal. The kidneys are unremarkable. There is calcified atherosclerosis of t he aorta and many of the other arteries. No pathologically enlarged abdominal or pelvic lymph nodes a re identified. The appendix is normal. Calcified uterine fibroids are noted. Colonic diverticulosis i s present without evidence of diverticulitis. There is moderate to severe lumbar spondylosis. IMPRESSION: 1. No CT correlate for the patient's symptoms. Reviewed, dictated and finalized at location F. ER CHEMIST
--- NOTE | ~2021-06-13 | XR_ITS ---
EXAMINATION: XR humerus LT INDICATION: Left upper arm pain TECHNIQUE: Two views of the left humerus are obtained. COMPARISON: None available FINDINGS: There is no fracture, dislocation, or subluxation of the humerus. The soft tissues are unre markable. Age-indeterminate left rib fractures are noted. IMPRESSION: 1. No acute osseous abnormality of the left humerus. 2. Age indeterminate left rib fractures. Reviewed, dictated and finalized at location F. TRICAL HELPER
--- NOTE | ~2021-06-13 | XR_ITS ---
EXAMINATION: XR elbow LT min 3V DATE: 06/13/2021 16:37 INDICATION: Left elbow pain TECHNIQUE: Anteroposterior, two oblique and lateral views of the left elbow were obtained. COMPARISON: None. FINDINGS: Alignment is normal. No fracture or joint effusion. Joint spaces are normal. Soft tissues are unremarkable. IMPRESSION: 1. No acute osseous abnormality. Reviewed, dictated and finalized at location F. F ENGINEER DRILLING AND RECOVERY
--- NOTE | 2021-06-13 15:49 | ED.FALL ---
HPI - Fall General Chief Complaint: Fall Stated Complaint: FALL/HURTS EVERYWHERE Time Seen by Provider: 06/13/21 15:48 Source: patient Mode of arrival: ambulatory Limitations: no limitations History of Present Illness HPI Narrative: Patient is an 86-year-old female with a history of Alzheimer's dementia, seizure disorder, chronic respiratory failure, COPD, presenting for evaluation of ground-level fall. Patient had an unwitnessed fall this afternoon, patient's daughter provides a history at bedside, states that she found the patient on the ground. Patient seemed to be reporting left arm pain, left hip pain. Was unable to stand with help from her daughter, thus EMS was called. EMS transported the patient in stable condition to our facility. Per family at bedside, patient is mentating at baseline. On exam, patient is able to state her name. She is awake and alert. No focal deficits. Unable to obtain additional history from patient given history of dementia. Patient's daughter states that she has not had any recent illnesses or medication changes. States that she may have tripped while trying to get to the restroom. States that typically that is from the patient sprains as her falls. Patient had not been complaining of any weakness, numbness, chest or abdominal pain but history is difficult to obtain from her given her history of dementia and daughter states that nothing else seemed out of order recently. Patient is not on any anticoagulation. Related Data Home Medications Medication Instructions Recorded Confirmed aspirin 81 mg tablet,delayed 81 mg PO DAILY 05/09/19 11/29/20 release fexofenadine 60 mg tablet 60 mg PO Q12H PRN 05/09/19 11/29/20 levocetirizine 5 mg DAILY 11/29/20 11/29/20 Allergies Allergy/AdvReac Type Severity Reaction Status Date / Time No Known Allergies Allergy Verified 06/13/21 15:58 Review of Systems Review of Systems: ROS unobtainable: Yes unobtainable due to mental status PMFSH Past Medical History Medical History Chronic kidney disease, stage 3a Baseline creatinine is 1.10. Chronic obstructive pulmonary disease Refuses inhalers. Chronic respiratory failure with hypoxia, on home oxygen therapy Dementia Depression with anxiety Gastroesophageal reflux disease Irritable bowel syndrome Nephrolithiasis Obstructive sleep apnea Noncompliant with CPAP. Pulmonary nodule Seizure disorder Surgical History Surgical History History of arthroscopy of right knee History of cholecystectomy History of repair of left rotator cuff History of tonsillectomy Family History Family History Father Family history of Alzheimer's disease Family history of diabetes mellitus in first degree relative Sibling Family history of Alzheimer's disease Family history of diabetes mellitus in first degree relative Family history of malignant neoplasm of ovary Mother Family history of malignant neoplasm of breast in first degree relative Social History Social History Social History: The patient lives in [place] with her daughter, Jesica. She smoked 2-3 packs of cigarettes a day for about 30 years and quit little over 30 years ago. Daughter, Jesica Van, as her healthcare power of sales and service officer. Code status: Do not resuscitate. Sexual Orientation (if Verbalized by the Patient): Straight or Heterosexual Exam Narrative: GENERAL: Awake, alert, conversant HEAD: Normocephalic, atraumatic. No cervical spine pain on exam. No step-offs or deformities. EYES: PERRLA and EOMI. ENT: Nares clear, no rhinorrhea or epistaxis. Mucous membranes moist. NECK: Supple. CHEST: No respiratory distress, breathing even and non labored, chest wall is nontender to palpation, no crepitus or ecchymosis HEAR
--- NOTE | 2021-06-13 15:57 | ECG_ITS ---
Measurements Intervals [place] Rate: 76 P: 68 UT: 191 QRS: -26 QRSD: 82 T: 71 QT: 375 QTc: 424 Interpretive Statements SINUS RHYTHM CANNOT RULE OUT SEPTAL INFARCT, AGE INDETERMINATE BASELINE ARTIFACT- I, II, III, AVR, AVL, AVF, V1-V6 ABNORMAL ECG Electronically Signed On 06-13-2021 19:59:02 STUDY MANAGER by Quique Baez D.O.
[2021-06-13 16:58] LABS: Basophils Percent Auto 0.4 % (0.2-1.2); Eosinophils Absolute Auto 0.5 K/mm3 (0-0.3); Eosinophils Percent Auto 4.4 % (0-4.4); Hematocrit 41.8 % (37.0-47.0); Hemoglobin 13.4 g/dL (12.0-15.0); Immature Granulocyte Absolute 0.04 K/mm3 (0.00-0.031); Immature Granulocyte Percent A 0.4 % (0-0.5); Lymphocytes Absolute Auto 2.12 K/mm3 (0.9-3.2); Lymphocytes Percent Auto 20.2 % (18.3-44.2); Mean Corpuscular HGB Conc 32.1 g/dl (32-36); Mean Corpuscular Volume 96.8 fl (80-100); Monocytes Percent Auto 9.2 % (2.6-8.5); Neutrophils Absolute Auto 6.9 K/mm3 (1.3-6.7); Neutrophils Percent Auto 65.4 % (45.5-73.1); Platelet Count Result 235 k/mm3 (150-375); Red Blood Count 4.32 M/mm3 (4.2-5.4); Red Cell Distribution Width 11.7 % (11.5-14.5); White Blood Count 10.5 K/mm3 (4.5-10.0)
[2021-06-13 17:18] LABS: Alanine Aminotransferase 14 U/L (4-35); Albumin Level 4.3 g/dL (3.5-5.1); Alkaline Phosphatase 62 U/L (38-126); Anion Gap 10 mmol/L (8-16); Aspartate Amino Transferase 28 U/L (14-36); Bilirubin,Total 0.6 mg/dL (0.2-1.3); Blood Urea Nitrogen 28 mg/dL (7-17); Calcium 9.2 mg/dL (8.4-10.2); Carbon Dioxide 25 mmol/L (22-30); Chloride 104 mmol/L (98-107); Estimated CRCL calculation 41 ml/min; Estimated Glomerular Filt Rate 53; Glucose 120 mg/dL (65-110); Lipase 103 U/L (23-300); Potassium 4.3 mmol/L (3.4-5.0); Sodium 139 mmol/L (137-145)
[2021-06-13 17:34] LABS: Add Urine Microscopic? NO; Appearance Urine Clear (Clear); Bilirubin Urine Negative (Negative); Blood Urine Negative (Negative); Color Urine Yellow (Yellow); Glucose Urine UA Negative (Negative); Ketones Urine Negative (Negative); Leukocyte Esterase Ur Negative LEU/UL (Negative); Nitrate Urine Negative (Negative); Protein Urine Negative (Negative); Specific Grav Ur 1.019 (1.001-1.035); Urobilinogen Urine Negative mg/dL (<2.0)
--- NOTE | 2021-06-13 19:23 | PC.NURSE ---
Patient in CT at this time. Report received from CARMELA Tellez. Assumed care of patient at this time.
[2021-06-13] MEDS: ACETAMINOPHEN 500 MG TABLET 1000 MG PO (19:35)
--- NOTE | 2021-06-13 19:58 | PC.NURSE ---
Patients daughter requesting to speak with physician. ERP notified.
[2021-06-13] MEDS: MORPHINE SULFATE (*CRX) 4 MG/ML INJ 2 MG IV PUSH (21:08)
--- NOTE | 2021-06-13 22:41 | PM.IMHP ---
H&P: HPI History of Present Illness Date/Time: 06/13/21 22:41 Chief Complaint: Fall Narrative: This is an 86-year-old female with past medical history significant for advanced Alzheimer's dementia, patient lives at home her primary caregiver is her daughter. Most of the history has been obtained from daughter who is at bedside due to patient's advanced dementia she cannot give any history. According to daughter patient is off stained a fall today from ground level, mechanical fall with bowel incontinence according to daughter known there was no loss of consciousness and patient was immediately assisted to. In emergency room preliminary workup was for the most part nonrevealing. Chest x-ray showed age indeterminate 7th and 8th rib fractures, bilateral lung opacities. Patient has been admitted for further evaluation ,management and treatment. Review of Systems Review of Systems: ROS unobtainable: Yes unobtainable due to medical condition (Alzheimer's dementia) [facility] Past Medical History Medical History Chronic kidney disease, stage 3a Baseline creatinine is 1.10. Chronic obstructive pulmonary disease Refuses inhalers. Chronic respiratory failure with hypoxia, on home oxygen therapy Dementia Depression with anxiety Gastroesophageal reflux disease Irritable bowel syndrome Nephrolithiasis Obstructive sleep apnea Noncompliant with CPAP. Pulmonary nodule Seizure disorder Surgical History Surgical History History of arthroscopy of right knee History of cholecystectomy History of repair of left rotator cuff History of tonsillectomy Family History Family History Father Family history of Alzheimer's disease Family history of diabetes mellitus in first degree relative Sibling Family history of Alzheimer's disease Family history of diabetes mellitus in first degree relative Family history of malignant neoplasm of ovary Mother Family history of malignant neoplasm of breast in first degree relative Social History Social History Social History: The patient lives in [place] with her daughter, Jesica. She smoked 2-3 packs of cigarettes a day for about 30 years and quit little over 30 years ago. Daughter, Jesica Van, as her healthcare power of attorney lawyer. Code status: Do not resuscitate. Sexual Orientation (if Verbalized by the Patient): Straight or Heterosexual Meds Home Medications and Allergies Home Medications Medication Instructions Recorded Confirmed Type pantoprazole 20 mg tablet,delayed 20 mg PO QAM #90 tablet 05/06/19 11/29/20 Rx release aspirin 81 mg tablet,delayed 81 mg PO DAILY 05/09/19 11/29/20 History release fexofenadine 60 mg tablet 60 mg PO Q12H PRN 05/09/19 11/29/20 History benzonatate 100 mg capsule 100 mg PO TID PRN #30 cap 08/28/20 11/29/20 Rx lamotrigine 200 mg tablet 200 mg PO DAILY #90 tablet 08/31/20 11/29/20 Rx gabapentin 100 mg capsule 100 mg PO BID #180 cap 09/28/20 11/29/20 Rx levocetirizine 5 mg DAILY 11/29/20 11/29/20 History sertraline 50 mg tablet 75 mg PO DAILY #135 tablet 01/13/21 Rx buspirone 7.5 mg tablet 7.5 mg PO BID #60 tablet 01/27/21 Rx diclofenac sodium 75 mg 75 mg PO BID #180 tablet 01/29/21 Rx tablet,delayed release meclizine 12.5 mg tablet 12.5 mg PO TID 5 Days #15 tablet 02/05/21 Rx Allergies Allergy/AdvReac Type Severity Reaction Status Date / Time No Known Allergies Allergy Verified 06/13/21 15:58 Vital Signs Vital Signs - 24 hr 06/13/21 15:52 06/13/21 18:34 06/13/21 21:15 Temperature 97.9 F Pulse Rate 83 81 81 Respiratory Rate 13 17 20 Blood Pressure 122/92 H Pulse Oximetry 98 95 06/13/21 21:36 Temperature Pulse Rate 81 Respiratory Rate 19 Blood Pressure Pulse Oximetry Exam Narrative:
[2021-06-14] VITALS (42 sets, daily range): BP systolic 114–123; BP diastolic 63–82; PULSE 75–92; RESP 13–21; TEMP 36.7; O2SAT 93–96
[2021-06-14] MEDS: cefTRIAXone 2 GM in SODIUM CHLORIDE 0.9% IV 100 ML 200 ML IVPB (06:30)
--- NOTE | 2021-06-14 11:38 | PM.DS ---
DS: Admitting Diagnosis Discharge Date 06/14/2021 Admitting Diagnosis Fall DS: Discharge Diagnosis Discharge Diagnosis (1) Fall from ground level: Code(s): W18.30XA - Fall on same level, unspecified, initial encounter Status: Acute Assessment and Plan: No acute injuries Placed in observation Bed rest For precautions (2) Chronic kidney disease, stage 3a: Code(s): N18.31 - Chronic kidney disease, stage 3a Status: Chronic Assessment and Plan: BUN and creatinine within normal limits Continue to monitor (3) Chronic respiratory failure with hypoxia, on home oxygen therapy: Code(s): J96.11 - Chronic respiratory failure with hypoxia; Z99.81 - Dependence on supplemental oxygen Status: Chronic Assessment and Plan: Continue supplemental oxygen Continue to monitor (4) Chronic obstructive pulmonary disease: Code(s): J44.9 - Chronic obstructive pulmonary disease, unspecified Status: Chronic Assessment and Plan: Continue home meds Not actively wheezing (5) Chronic GERD: Code(s): K21.9 - Gastro-esophageal reflux disease without esophagitis Status: Acute Assessment and Plan: Continue PPI (6) POOJA (obstructive sleep apnea): Code(s): G47.33 - Obstructive sleep apnea (adult) (pediatric) Status: Acute Assessment and Plan: Not using CPAP (7) Community acquired pneumonia: Code(s): J18.9 - Pneumonia, unspecified organism Status: Acute Assessment and Plan: Patient has been started on Rocephin and Zithromax Blood cultures in progress Supportive care Continue to monitor DS: Summary Hospital Course Reason for hospitalization: Fall Hospital Course: Patient 86 years old female was admitted complains of having fall. Patient all x-rays are negative except that chest x-ray shows possible old rib fracture. There was some question about pneumonia but patient is completely asymptomatic at present time, will switch her to p.o. antibiotic. Today patient is feeling better so [facility]. Chest x-ray will be repeated in 4 weeks in [facility]. Follow-up primary care scheduled outpatient next week Time spent discussing smoking cessation with patient: 3 to 10 minutes Status at Discharge Cognitive/behavioral status at discharge: Stable Functional status at discharge: uses cane/walker Overall status at discharge: patient is back to baseline Time Spent with Patient Time attestation: Total time spent providing and/or coordinating discharge services: Time spent: Less than 30 minutes Exam Narrative: Patient is laying in rlicking. Const: General: cooperative, comfortable, no acute distress, well developed, alert, awake and other (Well-appearing) Nutritional Appearance: average body habitus Orientation/consciousness: oriented to person HENMT: Head: normal to inspection, normocephalic and atraumatic Ears: hearing grossly normal bilaterally General nose exam: Normal external nose present Face and sinus: normal facial exam Mouth: Yes Normal oral and palatal mucosa present Eyes: General: appearance normal, both eyes and all related structures Sclera: sclerae normal Pupils: Equal, round and reactive pupils present EOM: EOMs intact bilaterally Neck: Neck: normal visual inspection, full ROM, no lymphadenopathy, supple and no JVD Thyroid: thyroid normal Lymphatic: no lymphadenopathy noted Resp: Effort & Inspection: normal respiratory effort and able to speak in complete sentences Auscultation: clear to auscultation bilaterally, no crackles, no rales, no rhonchi and no wheezes Cardio: Jugular venous distension: no JVD Rate: regular rate Rhythm: regular rhythm Heart sounds: S1 normal heart sound present and S2 normal heart sound present GI: Inspection: normal to inspection : General: Yes deferred Skin: General skin exam: pallor Rashes: no rashes Wounds: no wounds Neuro:
--- NOTE | 2021-06-14 13:27 | PC.NURSE ---
made contact with [employer] about transferring pt home to [facility] [place] [id number]. company is on their way now @ [id number]
[2021-06-14] MEDS: MORPHINE SULFATE (*CRX) 4 MG/ML INJ IV PUSH (13:38)
--- NOTE | 2021-06-14 14:40 | PC.NURSE ---
made contact with [email or web address] for an updated eta. company stated they would be another 45 minutes. made contact with [employer] to transfer pt home. [employer] gave us an eta of [id number]
--- NOTE | 2021-06-14 15:26 | PC.NURSE ---
[facility] [address] has arrived at 1526. [facility] had been informed they service is not needed.
== END 2021-06-14 15:45 | disposition hospice, home (50) ==
LOC: ANHED 20:27 → ANH3MEDSUR 06-14 11:37
PROVIDERS: Emergency Medicine; Admitting Provider Internal Medicine; Emergency Provider Emergency Medicine; PCP Internal Medicine; Visit Provider Internal Medicine
DX: M79.602 Pain in left arm (principal); M25.552 Pain in left hip; W19.XXXA Unspecified fall, initial encounter; N18.31 Chronic kidney disease, stage 3a; J96.11 Chronic respiratory failure with hypoxia; G30.9 Alzheimer's disease, unspecified; F02.80 Dementia in other diseases classified elsewhere, unspecified severity, without behavioral disturbance, psychotic disturbance, mood disturbance, and anxiety; F41.8 Other specified anxiety disorders; G47.33 Obstructive sleep apnea (adult) (pediatric); G40.909 Epilepsy, unspecified, not intractable, without status epilepticus; J44.9 Chronic obstructive pulmonary disease, unspecified; K21.9 Gastro-esophageal reflux disease without esophagitis; Z87.891 Personal history of nicotine dependence; Z79.82 Long term (current) use of aspirin; Z99.81 Dependence on supplemental oxygen; Z87.81 Personal history of (healed) traumatic fracture
CPT/HCPCS: 36415; 51701; 70450; 71046; 71100; 72125; 73060; 73080; 73110; 73521; 74176; 80053; 81003; 83690; 85025; 93005; 96365; 96367; 96368; 96375; 96376; 99285; A9270; G0378; J0456; J0696; J2270